=== PATIENT | male | born 1990 | race African-American/Black ===

== ENCOUNTER 2022-03-19 15:41 | Emergency (ER) | payer OTHER, SELFPAY ==
[2022-03-19 15:54] VITALS: BP 158/95; PULSE 139; RESP 16; TEMP 38.7; O2SAT 100
--- NOTE | 2022-03-19 16:06 | ED.GENADULT ---
HPI - General Adult General Chief complaint: Eye Problems Stated complaint: EYE REDNESS/FEVER Time Seen by Provider: 03/19/22 16:00 Source: patient Mode of arrival: ambulatory Limitations: no limitations History of Present Illness HPI narrative: Patient presents today complaining of left eye redness and watering since yesterday with nasal congestion and chills with fever up to 100 that started this afternoon. He has been using artificial tears and Benadryl without relief. Patient does wear contacts. He does not have glasses, so he is still wearing his contacts. Denies any purulent eye discharge or vision changes. Denies cough or sore throat. Related Data Home Medications Medication Instructions Recorded Confirmed No Home Medications 03/19/22 03/19/22 Allergies Allergy/AdvReac Type Severity Reaction Status Date / Time No Known Allergies Allergy Verified 03/19/22 15:57 Review of Systems Review of Systems: CONSTITUTIONAL: Denies body aches, sweats.+ fever, chills EYES: Denies visual changes. + left eye redness, swelling, moderate discharge. ENT: Denies rhinorrhea, sore throat, or otalgia.+ congestion CARDIOVASCULAR: Denies chest pain, palpitations, or edema. RESPIRATORY: Denies cough or dyspnea. GASTROINTESTINAL: Denies abdominal pain, nausea, vomiting, or diarrhea. GENITOURINARY: Denies dysuria or hematuria. SKIN: Denies rash, itching, or wounds. MUSCULOSKELETAL: Denies back pain, joint pain, or myalgia. NEUROLOGIC: Denies headache, numbness, tingling, or weakness. PSYCH: Denies depression or anxiety. PMFSH Comments At time of signature, I have reviewed and agree with nursing past medical, surgical, social and family history unless otherwise noted. Please see nursing chart for further information. There is no relevant family history pertinent to the presenting complaint Exam Narrative: GENERAL: Mildly ill-appearing, well-nourished, and in no acute distress. HEAD: Normocephalic, atraumatic. EYES: EOMI. PERRL. Left eye: Moderately injected conjunctiva with moderate watery discharge. Mildly swollen eyelids. Right eye normal. ENT: Mucous membranes pink and moist. Nares congested. No rhinorrhea. TMs normal bilaterally. Throat normal. Uvula midline. NECK: Normal AROM. Supple. No lymphadenopathy. CHEST: No respiratory distress. Clear to auscultation. HEART: Regular rhythm. + tachycardia. No murmur appreciated. Normal peripheral pulses. EXTREMITIES: Normal range of motion. No edema. SKIN: Warm, dry, no rash. Capillary refill normal. Normal skin turgor. NEURO: No focal deficits. Alert and oriented x3. Gait steady. PSYCH: Normal affect. No signs of depression or anxiety. Course Course Level of Care: Express Care Visit Vital Signs Vital signs: Vital Signs Oxygen Delivery Room Air 03/19/22 15:53 Temperature 101.7 F H 03/19/22 15:54 Pulse Rate 139 H 03/19/22 15:54 Respiratory Rate 16 03/19/22 15:54 Blood Pressure 158/95 H 03/19/22 15:54 Pulse Oximetry 100 03/19/22 15:54 Oxygen Delivery Room Air 03/19/22 15:53 Reviewed. Pt has been instructed to follow up with her PCP regarding her elevated blood pressure today. Medical Decision Making MDM Narrative Medical decision making narrative: Conjunctivitis is likely viral. Anticipatory guidance given on [id number] eyedrops and decongestant. Influenza swab negative. No prescription indicated at this time. Differential Diagnosis Differential Diagnosis: URI, conjunctivitis, influenza Vital Signs Vital Signs: Vital Signs Oxygen Delivery Room Air 03/19/22 15:53 Temperature 101.7 F H 03/19/22 15:54 Pulse Rate 139 H 03/19/22 15:54 Respiratory Rate 16 03/19/22 15:54 Blood Pressure 158/95 H 03/19/22 15:54 Pulse Oximetry 100 03/19/22 15:54 Oxygen Delivery Room Air 03/19/22 15:53 Lab Data Lab results reviewed: Yes I reviewed the patient's lab results. Labs: Influenza A Screen
== END 2022-03-19 16:29 | disposition home or self-care (01) ==
PROVIDERS: Emergency Provider Nurse Practitioner; PCP Nurse Practitioner Family
DX: H10.32 Unspecified acute conjunctivitis, left eye (principal); B34.9 Viral infection, unspecified
CPT/HCPCS: 87804; 99213; G0463